=== PATIENT | female | born 2000 | race Caucasian/White ===

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

== ENCOUNTER 2020-01-11 23:34 | Emergency (ER) | payer MEDICAID, SELFPAY ==
[2020-01-12 00:05] VITALS: BP 120/79; PULSE 105; RESP 16; TEMP 36.7; O2SAT 97; BMI 31.1
--- NOTE | 2020-01-12 00:35 | ED_ITS ---
HPI - General Adult General: Chief complaint: General Medical Stated complaint: RASH Time Seen by Provider: 01/12/20 00:06 History of Present Illness: HPI narrative: Patient is a 19-year-old female comes to the ED with pruritic rash on abdomen. Patient was seen here for same rash on December 28 and diagnosed with allergic urticaria and took oral steroids and applied some triamcinolone cream on rash as well. Patient says that rash completely resolved. Approximately 3 days ago she started developing rash again on the abdomen. Rash is pruritic but also has an irritated/burning sensation. It has been close to 2 weeks since last oral dose of steroid. Denies any shortness of breath, nausea/vomiting, diarrhea, fluid-filled vesicles, weeping, rash warmth or drainage from rash. Associated symptoms: Reports rash; Deny chest pain, dyspnea, headache(s), nausea, palpitations or vomiting Review of Systems Const: Denies: fever(s), chills or fatigue Eyes: Denies: change in vision or eye discomfort ENMT: Denies: throat pain, odynophagia, nasal discharge or nasal congestion Card: Denies: chest pain, palpitations, edema, swelling of feet/ankles, dyspnea on exertion or orthopnea Resp: Denies: dyspnea, productive cough or non-productive cough GI: Denies: abdominal pain, nausea, vomiting, diarrhea, constipation or hematochezia : Denies: flank pain, dysuria or hematuria Musc: Denies: neck pain, back pain or extremity swelling Skin/Breast: Reports: rash, pruritus, erythema, skin pain (described as a mild burning/irritated pain.) and breast skin changes (Rashes on both right and left breast.); Denies: skin tenderness, sores or new lesions Neuro: Denies: headache(s), numbness in extremities or weakness in extremities PFSH ED PFSH: Social History Smoking and tobacco status: never smoked Physical Exam Const: COMMON NORMALS: no acute distress, patient oriented x3, healthy appearing and alert GENERAL APPEARANCE: cooperative and comfortable HENMT: COMMON NORMALS: normocephalic HEAD & SCALP: normocephalic MOUTH: Normal oral and palatal mucosa present THROAT: posterior oropharynx normal and uvula midline Eye: COMMON NORMALS: Equal, round and reactive pupils present PUPIL: Yes Equal, round and reactive pupils present Neck/C-Spine: COMMON NORMALS: supple GENERAL: Yes normal visual inspection Resp: COMMON NORMALS: normal respiratory effort, No retractions, No use of accessory muscles and clear to auscultation bilaterally EFFORT & INSPECTION: Yes able to speak in complete sentences, No tachypneic and No respiratory distress AUSCULTATION: clear to auscultation bilaterally Cardio: COMMON NORMALS: regular rate, regular rhythm, S1 normal heart sound present, S2 normal heart sound present, No gallops present (Cardio), No clicks present (Cardio), No murmurs present (Cardio) and Peripheral pulses 2+ throughout RATE: regular rate RHYTHM: regular rhythm HEART SOUNDS: S1 normal heart sound present and S2 normal heart sound present PERIPHERAL PULSES: Peripheral pulses 2+ throughout GI: COMMON NORMALS: Normal to inspection, nondistended, normoactive bowel sounds present, Soft to palpation, non-tender and no masses PALPATION: Yes Soft to palpation : COMMON NORMALS: Yes no CVA tenderness BLADDER/KIDNEY EXAM: Yes no CVA tenderness Back/Pelvis: COMMON NORMALS: no CVA tenderness Extremity: COMMON NORMALS: normal to inspection Neuro: COMMON NORMALS: patient oriented x3 and moves all extremities SENSORIUM/ORIENTATION: Yes alert Skin: NARRATIVE SKIN EXAM: Patient has pruritic hives-like rash on abdomen. GENERAL SKIN EXAM: dry skin Course Vital Signs: Vital signs: Vital Signs Temperature 97.9 F 01/12/20 01:45 Pulse Rate 100 01/12/20 01:45 Respiratory Rate 16 01/12/20 01:45 Blood Pressure 119/74 01/12/20 01:45 Pulse Oximetry 96 01/12/20 01:45 MDM - General Adult MDM Narrative: Medical decision making narrative: Patient is a 19 female comes the ED with pruritic hives-like rash. She is in no acute distress. Patient was seen for same complaint on December 28. Patient says her rash improved after she finished taking her steroid dose and says she applied triamcinolone cream on some areas as well. Rash was gone for the approximately 7 to 10 days and now it reoccurred. She was given a dose of Solu-Medrol IM while here in the ED. She was discharged and told to fill her previously prescribed Medrol Dosepak p rescription to help treat rash. I told patient to not use triamcinolone cream on rash this time because rash could be a rebound rash to triamcinolone cream use. Follow-up with PCP in 7 to 10 days for reevaluation. Return to ED precautions given. Patient understood agree with plan. Discharge Plan Discharge Patient Disposition: Home Clinical Impression: Contact dermatitis Qualifiers: Contact dermatitis type: allergic Contact dermatitis trigger: unspecified trigger Qualified Code(s): L23.9 - Allergic contact dermatitis, unspecified cause Condition: Stable Prescriptions: No Action methylprednisolone [Medrol (Jake)] 4 mg tablets,dose pack See Rx Instructions PO PER PKG DIR Qty: 21 RF: 0 Control Pill PO RF: 0 triamcinolone acetonide 0.1 % cream 1 applic topical BID Qty: 80 RF: 0 Discharge Orders: Discharge ED (Routine); Ordered 01/12/20 Ordered By: Faizan Heck Referrals: Desiree Horn FNP [Primary Care Provider] - Discharge Diet: Regular Discharge Activity: Resume usual activity Patient Instructions: Contact Dermatitis (ED) Activity Restrictions/Additional Instructions: Follow-up with medical provider as directed in 7 to 10 days reevaluation. Go fill previously prescribed methylprednisolone prescription and take full course. Do not use triamcinolone cream on rash and just apply regular daily lotion. Return to the ER or your medical provider if condition worsens. Please read and understand discharge instructions. If any questions, please ask. Coding Level of Care Code ED Boom Supervisor for Purvi Fwgene Exam Comprehensive
[2020-01-12 01:45] VITALS: BP 119/74; PULSE 100; RESP 16; TEMP 36.6; O2SAT 96
== END 2020-01-12 01:46 | disposition home or self-care (01) ==
PROVIDERS: Emergency Provider Physician Assistant; PCP Nurse Practitioner
DX: L23.9 Allergic contact dermatitis, unspecified cause (principal)
CPT/HCPCS: 12345; 96372; 99281; 99283; J2930

== ENCOUNTER → 2021-01-09 00:01 | Outpatient (BNVA) | payer MEDICAID, SELFPAY | PROVIDERS: PCP Nurse Practitioner Family; Visit Provider Nurse Practitioner | DX: Z20.822 Contact with and (suspected) exposure to COVID-19 (principal) | CPT/HCPCS: 87426 ==

== ENCOUNTER → 2023-05-15 13:30 | Outpatient (BNVA) | payer BC, SELFPAY | PROVIDERS: PCP Family Medicine; Visit Provider Family Medicine | DX: E78.5 Hyperlipidemia, unspecified (principal); Z83.49 Family history of other endocrine, nutritional and metabolic diseases; D64.9 Anemia, unspecified; R19.7 Diarrhea, unspecified | CPT/HCPCS: 80053; 80061; 82728; 83540; 84443; 85025 ==

== ENCOUNTER 2023-05-18 07:15 | Outpatient (CLI) | payer BC, SELFPAY ==
--- NOTE | 2023-05-18 07:30 | US_ITS ---
WS: [id number] RIGHT UPPER QUADRANT ULTRASOUND HISTORY: r/o gallbladder disease COMPARISON: None available. Liver: 16.0 cm in length. Normal size liver and echogenicity. No bile duct dilatation or mass. Portal Vein: Normal hepatopetal flow with monophasic waveform. Gallbladder: Normally distended gallbladder with no stones or wall thickening. CBD: 0.3 cm Pancreas: Normal size and echogenicity. Right kidney: 10.5 cm in length. Normal size and echogenicity. No hydronephrosis or mass. Aorta and IVC: Unremarkable abdominal aorta and IVC. No ascites. IMPRESSION: Normal right upper quadrant ultrasound.
== END 2023-05-18 07:16 | disposition home or self-care (01) ==
LOC: RAD 07:16
PROVIDERS: PCP Family Medicine; Visit Provider Family Medicine
DX: K52.9 Noninfective gastroenteritis and colitis, unspecified (principal); R11.0 Nausea
CPT/HCPCS: 76705

== ENCOUNTER 2023-05-25 08:42 | Emergency (ER) | payer BC, SELFPAY ==
[2023-05-25 09:01] VITALS: BP 127/87; PULSE 90; RESP 18; TEMP 36.8; O2SAT 94
--- NOTE | 2023-05-25 09:01 | W.ED.NAVMDI ---
HPI - Nausea/Vomiting/Diarrhea General: Chief complaint: Nausea/Vomiting/Diarrhea Stated complaint: blood in stool, diarrhea Time Seen by Provider: 05/25/23 08:53 Source: patient Mode of arrival: ambulatory Limitations: no limitations History of Present Illness: Patient is a 22-year-old female presents to ED today with a complaint of abnormal stools and intermittent abdominal cramping over the past 3 months. Patient states starting around 3 months ago she began having diarrhea and steatorrhea like stools. She states she gets intermittent cramping mainly prior to defecation. She states certain foods significantly trigger her symptoms such as greasy/fatty/fried foods. She has been seen by her primary care provider who has ordered a gallbladder ultrasound which was essentially normal. She states she is scheduled for a HIDA scan in approximately 2 weeks. 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 Patient states yesterday she did take Pepto-Bismol and noticed today that her stools were dark and black and question whether this could be blood. Patient states she is not having much abdominal pain other than prior to defecation. She has not been running fevers. No systemic symptoms. No family history of inflammatory bowel disease. She thinks she has been told previously at 1 point she could have IBS. MD elicited complaint: diarrhea and abdominal pain Onset (ago): month(s) Description of diarrhea: semi-solid Associated nausea: No Associated abdominal pain: Yes Location of pain: Diffuse Pain consistency: intermittent Severity: mild Quality: cramping Exacerbating factors: eating (greasy/fatty/fried) Relieving factors: none Associated symtoms: Reports no associated symptoms; Denies chest pain, dysuria, fatigue, headache(s), malaise or nausea Treatment prior to arrival: immodium Review of Systems Const: Denies: fever(s), chills, body aches, fatigue or malaise Card: Denies: chest pain Resp: Denies: dyspnea GI: Reports: abdominal pain, diarrhea, GI cramping, change in bowel habits, melena (this AM) and steatorrhea; Denies: nausea, vomiting, hematemesis, pain on defecation, rectal pain, rectal swelling, rectal itching, hematochezia, mucus in stool or white/light colored stool : Denies: flank pain, difficulty voiding, dysuria, urinary frequency, urinary urgency or urinary hesitancy Musc: Denies: neck pain, back pain, extremity pain or joint pain Skin/Breast: Denies: rash Neuro: Denies: headache(s), numbness in extremities, weakness in extremities or sensory changes PFSH ED PFSH: Medical History Chiari malformation Asthma Surgical History History of wisdom tooth extraction Family History Mother Hypertension Grandfather Hemochromatosis Social History Smoking and tobacco/nicotine status: former use of tobacco/nicotine Quit status (tobacco/nicotine): has quit using Year quit tobacco: 2022 Former quit date comment: vaped x 1 year Alcohol intake: current Alcohol intake frequency: few times a month Alcohol type: wine Substance/Drug Use: current Substance/Drug use frequency: few times a week Lives independently: Yes Household members: significant other Current occupational status: employed 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 [employer] Pets and animals: Yes Pets & animals: cat(s) and dog(s) Leisure activites: other Leisure activities details: watching movie Special wolfgang needs: No Agree to transfusion: Yes Physical Exam Const: COMMON NORMALS: no acute distress, patient oriented x3, no limitations, alert and well nourished GENERAL APPEARANCE: cooperative NUTRITIONAL APPEARANCE: overweight ORIENTATION/CONSCIOUSNESS: Yes awake, Yes oriented to person, Yes oriented to place and Yes oriented to time Chest: COMMONS NORMALS: normal inspection of the chest and normal palpation of entire chest wall Resp: COMMON NORMALS: normal respiratory effort and clear to auscultation bilaterally AUSCULTATION: clear to auscultation bilaterally Cardio: COMMON NORMALS: regular rate and regular rhythm RATE: regular rate RHYTHM: regular rhythm GI: COMMON NORMALS: Normal to inspection, nondistended, normoactive bowel sounds present, Soft to palpation, non-tender, No hepatosplenomegaly present and no masses INSPECTION: Yes normal to inspection PALPATION: Yes Soft to palpation and Yes No hepatosplenomegaly present : COMMON NORMALS: Yes no CVA tenderness BLADDER/KIDNEY EXAM: Yes no CVA tenderness Back/Pelvis: COMMON NORMALS: no CVA tenderness Neuro: COMMON NORMALS: patient oriented x3 SENSORIUM/ORIENTATION: Yes alert, Yes oriented to person, Yes oriented to place and Yes oriented to time Course Vital Signs: Vital signs: Vital Signs Temperature 98.2 F 05/25/23 09:01 Pulse Rate 90 05/25/23 09:01 Respiratory Rate 18 05/25/23 09:01 Blood Pressure 127/87 05/25/23 09:01 Pulse Oximetry 94 05/25/23 09:01 Oxygen Delivery Me thod Room Air 05/25/23 09:01 MDM - Nausea/Vomiting/Diarrhea Medical Decision Making Patient appears in no acute distress. Her vital signs are stable. Abdomen is nonsurgical. She is here for complaints of diarrhea and steatorrhea over the past 3 months. She has had a normal gallbladder ultrasound. She is scheduled for HIDA scan in 2 weeks. Blood work overall is unremarkable. She was not able to have a bowel movement here. Attempted Hemoccult but could not get enough stool to test. Or black stool this morning most likely secondary to her Pepto use yesterday. I would have a low suspicion for acute GI bleed. DDx includes celiac disease, lactose intolerance, microscopic colitis, IBS. Unlikely inflammatory bowel disease. Recommend follow-up with primary care. We did discuss keeping a dietary/food log and cutting out gluten and dairy to see if this influences her symptoms. Return to ED precautions given. Lab Data 05/25/23 10:07 05/25/23 10:07 Laboratory Results WBC 4.46 10^3/uL (3.29-11.43) 05/25/23 10:07 RBC 4.72 10^6/uL (3.85-5.65) 05/25/23 10:07 Hgb 12.60 g/dL (11.27-16.99) 05/25/23 10:07 Hct 39.6 % (36-47) 05/25/23 10:07 MCV 83.9 fl (85-98) L 05/25/23 10:07 MCH 26.7 pg (27-33) L 05/25/23 10:07 MCHC 31.8 g/dL (30-55) 05/25/23 10:07 RDW 13.9 % (12.1-15.1) 05/25/23 10:07 Plt Count 303 10^3/cmm (157-399) 05/25/23 10:07 MPV 10.4 fL (7.4-10.4) 05/25/23 10:07 Neut % (Auto) 58.6 % 05/25/23 10:07 Lymph % (Auto) 27.6 % 05/25/23 10:07 [place] % (Auto) 12.3 % 05/25/23 10:07 Eos % (Auto) 1.1 % 05/25/23 10:07 Baso % (Auto) 0.2 % 05/25/23 10:07 Neut # (Auto) 2.61 10^3/uL (1.8-7.7) 05/25/23 10:07 Lymph # (Auto) 1.2 10^3/uL (0.8-4.8) 05/25/23 10:07 [place] # (Auto) 0.6 10^3/uL (0.2-0.9) 05/25/23 10:07 Eos # (Auto) 0.1 10^3/uL (0.0-0.8) 05/25/23 10:07 Baso # (Auto) 0.0 10^3/uL (0.0-0.1) 05/25/23 10:07 Nucleated RBC % (auto) 0 % 05/25/23 10:07 Nucleated RBCs # 0.0 /100WBC 05/25/23 10:07 Sodium 137 mmol/L (136-145) 05/25/23 10:07 Potassium 4.0 mmol/L (3.5-5.1) 05/25/23 10:07 Chloride 102 mmol/L (98-107) 05/25/23 10:07 Carbon Dioxide 24 mmol/L (22-29) 05/25/23 10:07 Anion Gap 15.0 (5-19) 05/25/23 10:07 BUN 6 mg/dL (6-20) 05/25/23 10:07 Creatinine 0.6 mg/dL (0.5-0.9) 05/25/23 10:07 GFR Calculation 125.0 mL/min (90-130) 05/25/23 10:07 Glucose 104 mg/dL (65-115) 05/25/23 10:07 Calculated Osmolality 282 mOsm/kg (285-295) L 05/25/23 10:07 Calcium 9.1 mg/dL (8.5-10.5) 05/25/23 10:07 Total Bilirubin 0.2 mg/dL (0.15-1.2) 05/25/23 10:07 AST 23 U/L (0-32) 05/25/23 10:07 ALT 20 U/L (0-33) 05/25/23 10:07 Alkaline Phosphatase 98 U/L (35-105) 05/25/23 10:07 Total Protein 7.8 g/dL (6.6-8.7) 05/25/23 10:07 Albumin 3.7 g/dL (3.5-5.2) 05/25/23 10:07 Globulin 4.1 g/dL (1.3-4.6) 05/25/23 10:07 Lipase 24 U/L (13-60) 05/25/23 10:07 HCG, Qual Negative (Negative) 05/25/23 10:07 No radiology studies performed this visit Discharge Plan Discharge Patient Disposition: Home Clinical Impression: Postprandial diarrhea Condition: Stable Prescriptions: No Action norgestimate-ethinyl estradiol [Sprintec (28)] 0.25-35 mg-mcg tablet 1 tab PO QPM albuterol sulfate 90 mcg/actuation HFA aerosol inhaler 2 puff inhalation Q6H PRN (Reason: Shortness Of Breath Or Wheezing) betamethasone dipropionate 0.05 % lotion 1 applic topical DAILY PRN (Reason: skin irritation) Qty: 60 0RF Discharge Orders: Discharge ED (Routine); Ordered 05/25/23 Ordered By: Libia Collins Referrals: Hanny Laboy MD [Primary Care Provider] - Activity Restrictions/Additional Instructions: As we discussed continue with plan for HIDA scan in approximately 2 weeks. We also discussed removing gluten and dairy from your diet and keeping a strict dietary log. I would like you to follow-up with primary care for further evaluation from there. Coding Level of Care Code ED Prototype Engineer for Purvi Ahn
[2023-05-25 10:26] LABS: Basophils % 0.2 %; Eosinophils # 0.1 10^3/uL (0.0-0.8); Eosinophils % 1.1 %; Hematocrit 39.6 % (36-47); Lymphocytes # 1.2 10^3/uL (0.8-4.8); Lymphocytes % 27.6 %; Mean Corpuscular HGB Conc 31.8 g/dL (30-55); Mean Corpuscular Hemoglobin 26.7 pg (27-33); Mean Corpuscular Volume 83.9 fl (85-98); Mean Platelet Volume 10.4 fL (7.4-10.4); Monocytes # 0.6 10^3/uL (0.2-0.9); Monocytes % 12.3 %; Neutrophils # 2.61 10^3/uL (1.8-7.7); Neutrophils % 58.6 %; Nucleated Red Blood Cells % 0 %; Platelet Count 303 10^3/cmm (157-399); Red Blood Count 4.72 10^6/uL (3.85-5.65); Red Cell Distribution Width 13.9 % (12.1-15.1); White Blood Count 4.46 10^3/uL (3.29-11.43)
[2023-05-25 10:47] LABS: Alanine Aminotransferase 20 U/L (0-33); Albumin Level 3.7 g/dL (3.5-5.2); Alkaline Phosphatase 98 U/L (35-105); Aspartate Amino Transferase 23 U/L (0-32); Blood Urea Nitrogen 6 mg/dL (6-20); Calcium 9.1 mg/dL (8.5-10.5); Carbon Dioxide 24 mmol/L (22-29); Chloride 102 mmol/L (98-107); Globulin 4.1 g/dL (1.3-4.6); Glucose 104 mg/dL (65-115); Lipase 24 U/L (13-60); Osmolality Calculated 282 mOsm/kg (285-295); Sodium 137 mmol/L (136-145); Total Bilirubin 0.2 mg/dL (0.15-1.2); Total Protein 7.8 g/dL (6.6-8.7)
[2023-05-25 10:48] LABS: HCG, Serum Qual Negative (Negative)
[2023-05-25 11:32] VITALS: BP 127/87; PULSE 86; O2SAT 98
== END 2023-05-25 11:33 | disposition home or self-care (01) ==
PROVIDERS: Emergency Provider Physician Assistant; PCP Family Medicine
DX: K59.1 Functional diarrhea (principal); Z87.891 Personal history of nicotine dependence
CPT/HCPCS: 36415; 80053; 83690; 84703; 85025; 99283

== ENCOUNTER 2023-05-30 08:44 | Outpatient (CLI) | payer BC, SELFPAY ==
--- NOTE | 2023-05-30 09:00 | CT_ITS ---
WS: [id number] CT HEAD NONCONTRAST HISTORY: f/u chiari malformation TECHNIQUE: Contiguous axial imaging performed through the brain in 2.5 mm imaging. Bone and soft tiss ue windows. Sagittal and coronal reformats reviewed. All CT scans at [facility] use at least one of these dose optimization techniques: automated exposure control; mA and/or kV adjustment per pa tient size (includes targeted exams where dose is matched to clinical indication); or iterative recon struction. DLP: 964.39 mGy.cm COMPARISON: None available. No acute intracranial hemorrhage, midline shift or mass effect. No atrophy or prior infarcts or herniation. Ventricles: Normal size with no hydrocephalus. There is very mild ectopia of the cerebellar tonsils. No obvious Chiari malformation. There is mild i nferior displacement the cerebellar tonsils but less than 6 mm below the foramen magnum. The entire f oramen magnum was not included. Paranasal sinuses: Mild RIGHT ethmoid air cell disease. Mastoid air cells: Well pneumatized. Calvarium and scalp: Skull is intact with no soft tissue edema or swelling. IMPRESSION: 1. Very mild inferior displacement of the cerebellar tonsils. No Chiari malformation is identified. 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 2. No hydrocephalus or obstruction of the ventricular system.
== END 2023-05-30 08:45 | disposition home or self-care (01) ==
LOC: RAD 08:44
PROVIDERS: PCP Family Medicine; Visit Provider Family Medicine
DX: Z86.69 Personal history of other diseases of the nervous system and sense organs (principal); Q04.8 Other specified congenital malformations of brain
CPT/HCPCS: 70450

== ENCOUNTER 2023-06-07 07:44 | Outpatient (CLI) | payer BC, SELFPAY ==
--- NOTE | 2023-06-07 08:00 | NM_ITS ---
WS: [id number] NUCLEAR MEDICINE HIDA SCAN CLINICAL INFORMATION: r/o gallbladder dysfunction TECHNIQUE: Following intravenous administration of 7.2 mCi of technetium 99m mebrofenin, images of th e abdomen were obtained over the course of 60 minutes. Next, gallbladder ejection fraction was determ ined by obtaining preprandial and one-hour postprandial images of the gallbladder following oral elidia stion of Ensure. COMPARISON: None. FINDINGS: Normal hepatic uptake at 5 minutes. Normal hepatic excretion. Gallbladder is visualized by 15 minutes . No evidence of acute cholecystitis. Normal common bile duct and small bowel activity. Gallbladder ejection fraction 72% within normal limits. No evidence of chronic cholecystitis. NM/NM hepatobiliary w phar* [id number] IMPRESSION: 1. No evidence of acute or chronic cholecystitis. 2. Gallbladder ejection fraction 72% within normal limits.
== END 2023-06-07 07:45 | disposition home or self-care (01) ==
PROVIDERS: PCP Family Medicine; Visit Provider Family Medicine
DX: R11.0 Nausea (principal); K52.9 Noninfective gastroenteritis and colitis, unspecified
CPT/HCPCS: 78227; A9537

== ENCOUNTER → 2023-09-17 13:43 | Outpatient (BNVA) | payer BC, SELFPAY | PROVIDERS: PCP Family Medicine; Visit Provider Family Medicine | DX: K52.9 Noninfective gastroenteritis and colitis, unspecified (principal) | CPT/HCPCS: 84443; 86003; 86008; 86364 ==

== ENCOUNTER → 2023-09-19 08:05 | Outpatient (BNVA) | payer BC, SELFPAY | PROVIDERS: PCP Family Medicine; Visit Provider Family Medicine | DX: K52.9 Noninfective gastroenteritis and colitis, unspecified (principal) | CPT/HCPCS: 83630; 83993; 87177; 87209; 87328; 87329 ==

== ENCOUNTER → 2023-11-26 15:45 | Outpatient (BNVA) | payer BC, SELFPAY | PROVIDERS: PCP Family Medicine; Visit Provider Family Medicine | DX: R30.0 Dysuria (principal) | CPT/HCPCS: 81000 ==

== ENCOUNTER → 2024-04-04 09:10 | Outpatient (BNVA) | payer BC, SELFPAY | PROVIDERS: PCP Family Medicine; Visit Provider Family Medicine | DX: Z01.419 Encounter for gynecological examination (general) (routine) without abnormal findings (principal) | CPT/HCPCS: 87491; 87591; 87661; 88175 ==

== ENCOUNTER 2024-05-08 12:26 | Emergency (ER) | payer BC, SELFPAY ==
[2024-05-08 12:29] VITALS: BP 133/89; PULSE 86; TEMP 36.6; O2SAT 98; BMI 31.4
--- NOTE | 2024-05-08 12:34 | ECG_ITS ---
[facility] Test Date: 2024-05-08 Pat Name: David Luevano Department: Room: Gender: Female [employer]: : 2000 Requested By: Haresh Steele Order Number: [id number] Recinos MD: Yung Andrew M.D. Measurements Intervals [place] Rate: 87 P: 78 [place]: 135 QRS: 36 QRSD: 104 T: 41 QT: 365 QTc: 441 Interpretive Statements SINUS RHYTHM WITH SINUS ARRHYTHMIA No previous ECG available for comparison Electronically Signed On 05-08-2024 17:33:45 CDT by Yung Andrew M.D. [email or web address]
[2024-05-08 12:51] VITALS: BP 127/83; PULSE 82; RESP 16; O2SAT 98
--- NOTE | 2024-05-08 13:20 | ED_ITS ---
HPI - Abdominal Pain 2 General: Chief Complaint: Abdominal Pain Stated Complaint: chest pain Time Seen by Provider: 05/08/24 12:57 Source: patient Mode of arrival: ambulatory Limitations: no limitations History of Present Illness: Patient is a 23-year-old female presents to ED today with complaint of upper abdominal pain. Patient states earlier today around lunch she was eating tater tots and a burrito from [employer] when she began developing nausea and upper abdominal pain. Patient states she has had a lot of digestive issues for a while now. She has been evaluated by her primary care provider and states she had a negative ultrasound and HIDA scan performed. They had spoken about possible referrals for an endoscopy/colonoscopy. Patient states she was also tested for alpha gal and recommended to avoid beef and silveira. Patient states she did cut out all beef and felt like her digestive issues improved but have slowly returned. Patient denies excessive alcohol or anti-inflammatory use. She has not had any episodes of vomiting. She does report chronic intermittent diarrhea. MD elicited complaint: abdominal pain Pertinent past history: none Onset (ago): hour(s) Pain Consistency: constant Location: Epigastric Severity: moderate Radiation: none Migration to: no migration Exacerbating factors: eating Relieving factors: nothing Associated Symptoms: Reports diarrhea (chronic) and nausea; Denies chills, dysuria, fever(s), hematemesis and vomiting Related Data Home Medications ?Medication ?Instructions ?Recorded ?Confirmed cetirizine 10 mg tablet (Zyrtec) 10 mg PO QPM PRN jacqueline rgy symptoms 05/08/24 05/08/24 Previous Rx's ?Medication ?Instructions ?Recorded albuterol sulfate 90 mcg/actuation 2 puff inhalation Q 6H PRN 11/26/23 aerosol inhaler Shortness Of Breath Or Wheez ing #8.5 grams fluticasone propionate 110 1 puff inhalation Q12H #12 grams 04/03/24 mcg/actuation HFA aerosol inhaler norgestimate 0.25 mg-ethinyl 1 tab PO QPM #84 tabs estradiol 35 mcg tablet (Sprintec (28)) pantoprazole 40 mg tablet,delayed 40 mg PO DAILY 2 wee ks #14 tabs 05/08/24 release (Protonix) sucralfate 1 gram tablet (Carafate) 1 g PO TID 2 weeks #42 tabs 05/08/24 Allergies Allergy/AdvReac Type Severity Reaction Status Date / Time Alpha-Gal Allergy Unknown Verified 05/08/24 12:38 (Efgosbdtb-Uhtdx-3,3-Gala Penicillins Allergy hives Verified 05/08/24 12:38 Review of Systems 2 Const: Denies: fever(s), chills, body aches, fatigue or malaise Card: Denies: chest pain Resp: Denies: dyspnea GI: Reports: abdominal pain, nausea and diarrhea (chronic); Denies: vomiting or hematemesis : Denies: flank pain, difficulty voiding, dysuria, urinary frequency, urinary urgency or urinary hesitancy Musc: Denies: neck pain, back pain, extremity pain or joint swelling Skin/Breast: Denies: rash Neuro: Denies: headache(s) or dizziness PFSH ED 2 PFSH: Medical History Asthma Surgical History History of wisdom tooth extraction Family History Mother Hypertension Grandfather Hemochromatosis Social History Smoking and tobacco/nicotine status: never used tobacco/nicotine Quit status (tobacco/nicotine): has quit using Year quit tobacco: 2022 Former quit date comment: vaped x 1 year Alcohol intake: current Alcohol intake frequency: few times a month Alcohol type: wine Substance/Drug Use: current Substance/Drug use frequency: few times a week Lives independently: Yes Household members: significant other Current occupational status: employed 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 [employer] Pets and animals: Yes Pets & animals: cat(s) and dog(s) Leisure activites: other Leisure activities details: watching movie Special wolfgang needs: No Agree to transfusion: Yes Physical Exam 2 Const: COMMON NORMALS: no acute distress, average body habitus, patient oriented x3, no limitations, healthy appearing, alert and well nourished HENMT: COMMON NORMALS: normocephalic and atraumatic HEAD & SCALP: n ormocephalic and atraumatic Neck/C-Spine: COMMON NORMALS: full ROM, no lymphadenopathy, supple and no meningeal signs Chest: COMMONS NORMALS: normal inspection of the chest Resp: COMMON NORMALS: normal respiratory effort and clear to auscultation bilaterally AUSCULTATION: clear to auscultation bilaterally Cardio: COMMON NORMALS: regular rate and regular rhythm RATE: regular rate RHYTHM: regular rhythm GI: COMMON NORMALS: Normal to inspection, nondistended, normoactive bowel sounds present, Soft to palpation, No hepatosplenomegaly present and no masses INSPECTION: Yes normal to inspection AUSCULTATION: Yes normoactive bowel sounds PALPATION: Yes Soft to palpation, Yes Tenderness to palpation present (GI) (upper abdomen; max tenderness to epigastric region), No Guarding due to palpation present (GI), No Rigid due to palpation and Yes No hepatosplenomegaly present : COMMON NORMALS: Yes no CVA tenderness BLADDER/KIDNEY EXAM: Yes no CVA tenderness Back/Pelvis: COMMON NORMALS: no CVA tenderness and thoracic and lumbar spine normal to inspection Extremity: COMMON NORMALS: normal to inspection Neuro: COMMON NORMALS: patient oriented x3 SENSORIUM/ORIENTATION: Yes alert MENINGEAL SIGNS: Yes no meningeal signs Skin: COMMON NORMALS: no rashes or lesions noted GENERAL SKIN EXAM: no rashes or lesions noted Course 2 Vital Signs: Vital signs: Vital Signs Temperature 97.8 F 05/08/24 12:29 Pulse Rate 74 05/08/24 13:38 Respiratory Rate 16 05/08/24 13:38 Blood Pressure 127/83 05/08/24 13:38 Pulse Oximetry 100 05/08/24 13:38 Oxygen Delivery Me thod Room Air 05/08/24 13:38 MDM - Abdominal Pain Medical Decision Making Patient clinically appears in no acute distress. She is here complaining of epigastric pain after eating tater tots and a burrito. She was provided a GI cocktail here and states this took her discomfort from a 7/10 down to a 3/10. Will go ahead and place her on pantoprazole and carafate x 2 weeks. Recommend she avoid spicy and acidic foods. Recommend she follow-up with primary care for further assessment and treatment. While here, her vital signs have remained stable. Her blood work overall is unremarkable. UA is contaminated. She is not having any UTI-like symptoms. Patient will be allowed discharge. She was given return precautions. Medical Records I reviewed the patient's medical records. Lab Data I reviewed the patient's lab results. 05/08/24 13:27 05/08/24 13:27 Labs/Radiology: Laboratory Results WBC 9.13 10^3/uL (3.29-11.43) 05/08/24 13:27 RBC 4.27 10^6/uL (3.85-5.65) 05/08/24 13:27 Hgb 11.20 g/dL (11.27-16.99) L 05/08/24 13:27 Hct 35.5 % (36-47) L 05/08/24 13:27 MCV 83.1 fl (85-98) L 05/08/24 13:27 MCH 26.2 pg (27-33) L 05/08/24 13:27 MCHC 31.5 g/dL (30-55) 05/08/24 13:27 RDW 13.2 % (12.1-15.1) 05/08/24 13:27 Plt Count 389 10^3/cmm (157-399) 05/08/24 13:27 MPV 10.6 fL (7.4-10.4) H 05/08/24 13:27 Neut % (Auto) 55.2 % 05/08/24 13:27 Lymph % (Auto) 32.9 % 05/08/24 13:27 [place] % (Auto) 8.3 % 05/08/24 13:27 Eos % (Auto) 3.0 % 05/08/24 13:27 Baso % (Auto) 0.5 % 05/08/24 13:27 Neut # (Auto) 5.04 10^3/uL (1.8-7.7) 05/08/24 13:27 Lymph # (Auto) 3.0 10^3/uL (0.8-4.8) 05/08/24 13:27 [place] # (Auto) 0.8 10^3/uL (0.2-0.9) 05/08/24 13:27 Eos # (Auto) 0.3 10^3/uL (0.0-0.8) 05/08/24 13:27 Baso # (Auto) 0.1 10^3/uL (0.0-0.1) 05/08/24 13:27 Nucleated RBC % (auto) 0 % 05/08/24 13:27 Nucleated RBCs # 0.0 /100WBC 05/08/24 13:27 Sodium 138 mmol/L (136-145) 05/08/24 13:27 Potassium 3.9 mmol/L (3.5-5.1) 05/08/24 13:27 Chloride 104 mmol/L (98-107) 05/08/24 13:27 Carbon Dioxide 25 mmol/L (22-29) 05/08/24 13:27 Anion Gap 12.9 (5-19) 05/08/24 13:27 BUN 9 mg/dL (6-20) 05/08/24 13:27 Creatinine 0.7 mg/dL (0.5-0.9) 05/08/24 13:27 GFR Calculation 103.7 mL/min (90-130) 05/08/24 13:27 Glucose 93 mg/dL (65-115) 05/08/24 13:27 Calculated Osmolality 284 mOsm/kg (285-295) L 05/08/24 13:27 Calcium 8.9 mg/dL (8.5-10.5) 05/08/24 13:27 Total Bilirubin 0.2 mg/dL (0.15-1.2) 05/08/24 13:27 AST 15 U/L (0-32) 05/08/24 13:27 ALT 13 U/L (0-33) 05/08/24 13:27 Alkaline Phosphatase 88 U/L (35-105) 05/08/24 13:27 Total Protein 7.3 g/dL (6.6-8.7) 05/08/24 13:27 Albumin 3.8 g/dL (3.5-5.2) 05/08/24 13:27 Globulin 3.5 g/dL (1.3-4.6) 05/08/24 13:27 Lipase 27 U/L (13-60) 05/08/24 13:27 HCG, Qual Negative (Negative) 05/08/24 13:27 Urine Color Yellow (Yellow) 05/08/24 13:39 Urine Appearance Cloudy (CLEAR) A 05/08/24 13:39 Urine pH 5 (5-7) 05/08/24 13:39 Ur Specific [place] 1.020 (1.005-1.030) 05/08/24 13:39 Urine Protein Neg (Negative) 05/08/24 13:39 Urine Glucose (UA) Norm (Normal) 05/08/24 13:39 Urine Ketones Negative (Negative) 05/08/24 13:39 Urine Blood 2+ (Negative) H 05/08/24 13:39 Urine Nitrate Negative (Negative) 05/08/24 13:39 Urine Bilirubin Neg (Negative) 05/08/24 13:39 Urine Urobilinogen Neg mg/dL (Negative) 05/08/24 13:39 Ur Leukocyte Esterase 2+ (Negative) H 05/08/24 13:39 Urine RBC 0-2 /hpf (0-2) 05/08/24 13:39 Urine WBC 6-10 /hpf (0-5) 05/08/24 13:39 Ur Squamous Epith Cells 11-20 /hpf (0-5) H 05/08/24 13:39 Amorphous Sediment Not Reportable 05/08/24 13:39 Urine Bacteria 2+ /hpf (NONE) H 05/08/24 13:39 Hyaline Casts 3.30 /lpf 05/08/24 13:39 No radiology studies performed this visit Discharge Plan Discharge Patient Disposition: Home Clinical Impression: Gastritis Qualifiers: Gastritis type: unspecified gastritis Chronicity: acute Gastritis bleeding: w ithout bleeding Qualified Code(s): K29.00 - Acute gastritis without bleeding Condition: Stable Prescriptions: New pantoprazole [Protonix] 40 mg tablet,delayed release (DR/EC) 40 mg PO DAILY 14 Days Qty: 14 0RF sucralfate [Carafate] 1 gram tablet 1 g PO TID 14 Days Qty: 42 0RF No Action albuterol sulfate 90 mcg/actuation HFA aerosol inhaler 2 puff inhalation Q6H PRN (Reason: Shortness Of Breath Or Wheezing) Qty: 8.5 11RF fluticasone propionate 110 mcg/actuation HFA aerosol inhaler 1 puff inhalation Q12H Qty: 12 0RF norgestimate-ethinyl estradiol [Sprintec (28)] 0.25-35 mg-mcg tablet 1 tab PO QPM Qty: 84 3RF cetirizine [Zyrtec] 10 mg tablet 10 mg PO QPM PRN (Reason: allergy symptoms) Discharge Orders: Discharge ED (Routine); Ordered 05/08/24 Ordered By: Libia Collins Referrals: Hanny Laboy MD [Primary Care Provider] - Activity Restrictions/Additional Instructions: As we discussed, we will place you on 2 different medications over the next 2 weeks to help with symptoms. Avoid spicy and acidic foods as well as alcohol and anti-inflammatories. Please schedule appointment with primary care so they can reassess symptoms after medications and discuss any further recommendations/treatment plans. You may return to the emergency department at any point for worsening or severe abdominal pain, repetitive episodes of vomiting, blood in your vomit, black or tarry stools, fevers, generally feeling worse or unwell, or any other concerns you may have. Print Language: Bulgarian Coding Level of Care Code ED Chief Executive for Purvi Ahn
[2024-05-08 13:32] LABS: Basophils # 0.1 10^3/uL (0.0-0.1); Basophils % 0.5 %; Eosinophils # 0.3 10^3/uL (0.0-0.8); Hematocrit 35.5 % (36-47); Lymphocytes % 32.9 %; Mean Corpuscular HGB Conc 31.5 g/dL (30-55); Mean Corpuscular Hemoglobin 26.2 pg (27-33); Mean Corpuscular Volume 83.1 fl (85-98); Mean Platelet Volume 10.6 fL (7.4-10.4); Monocytes # 0.8 10^3/uL (0.2-0.9); Monocytes % 8.3 %; Neutrophils # 5.04 10^3/uL (1.8-7.7); Neutrophils % 55.2 %; Nucleated Red Blood Cells % 0 %; Platelet Count 389 10^3/cmm (157-399); Red Blood Count 4.27 10^6/uL (3.85-5.65); Red Cell Distribution Width 13.2 % (12.1-15.1); White Blood Count 9.13 10^3/uL (3.29-11.43)
[2024-05-08] MEDS: lidocaine 2% viscous 15 ML, aluminum-mag hydrox-simethicon 30 ML, sucralfate oral liq 1 GM PO (13:37)
[2024-05-08 13:38] VITALS: BP 127/83; PULSE 74; RESP 16; O2SAT 100
[2024-05-08 13:44] LABS: HCG, Serum Qual Negative (Negative)
[2024-05-08 13:48] LABS: Alanine Aminotransferase 13 U/L (0-33); Albumin Level 3.8 g/dL (3.5-5.2); Alkaline Phosphatase 88 U/L (35-105); Anion Gap 12.9 (5-19); Aspartate Amino Transferase 15 U/L (0-32); Blood Urea Nitrogen 9 mg/dL (6-20); Calcium 8.9 mg/dL (8.5-10.5); Carbon Dioxide 25 mmol/L (22-29); Chloride 104 mmol/L (98-107); Creatinine Clr Calc Pharmacy 154.6329; Globulin 3.5 g/dL (1.3-4.6); Glomerular Filtration Rate 103.7 mL/min (90-130); Glucose 93 mg/dL (65-115); Lipase 27 U/L (13-60); Osmolality Calculated 284 mOsm/kg (285-295); Potassium 3.9 mmol/L (3.5-5.1); Sodium 138 mmol/L (136-145); Total Bilirubin 0.2 mg/dL (0.15-1.2); Total Protein 7.3 g/dL (6.6-8.7)
[2024-05-08 13:52] LABS: Bacteria Urine 2+ /hpf; RBC Urine 0-2 /hpf (0-2)
[2024-05-08 13:55] LABS: Add Urine Culture? No; Add Urine Microscopic? YES; Bilirubin Urine Neg (Negative); Blood Urine 2+ (Negative); Glucose Urine UA Norm (Normal); Ketones Urine Negative (Negative); Leukocyte Esterase Urine 2+ (Negative); Nitrate Urine Negative (Negative); Protein Urine Neg (Negative); Urine Appearance Cloudy (CLEAR); Urine Color Yellow (Yellow); Urobilinogen Urine Neg (Negative); pH Urine 5 (5-7)
[2024-05-08 14:26] VITALS: BP 116/80; PULSE 73; O2SAT 100
== END 2024-05-08 14:27 | disposition home or self-care (01) ==
PROVIDERS: Emergency Provider Physician Assistant; PCP Family Medicine
DX: K29.00 Acute gastritis without bleeding (principal)
CPT/HCPCS: 36415; 80053; 81001; 83690; 84703; 85025; 93005; 99284; J9999

== ENCOUNTER → 2024-09-26 13:20 | Outpatient (BNVA) | payer BC, SELFPAY | PROVIDERS: PCP Family Medicine; Visit Provider Family Medicine | DX: N89.8 Other specified noninflammatory disorders of vagina (principal) | CPT/HCPCS: 87491; 87512; 87591; 87799 ==

== ENCOUNTER → 2024-10-26 15:54 | Outpatient (BNVA) | payer BC, SELFPAY | PROVIDERS: PCP Family Medicine; Visit Provider Emergency Medicine | DX: R50.9 Fever, unspecified (principal) | CPT/HCPCS: 87400; 87426 ==